=== PATIENT | male | born 1965 | race Caucasian/White ===

== ENCOUNTER 2019-06-28 21:45 | Outpatient (REF) | payer BC, SELFPAY ==
[2019-06-28 22:21] LABS: ALT 39 U/L (16-63); AST 20 U/L (15-37); Albumin 4.3 g/dL (3.4-5.0); Alkaline Phosphatase 79 U/L (46-116); BUN 14 mg/dL (7-18); Bilirubin, Total 0.8 mg/dL (0.2-1.0); CREATININE 0.93 mg/dL (0.70-1.30); Calcium 8.8 mg/dL (8.5-10.1); Calculated LDL 86 mg/dL; Chloride 105 mmol/L (98-107); Cholesterol 138 mg/dL (<200); Glucose 87 mg/dL (74-106); HDL Cholesterol 37 mg/dL (40-60); Sodium 141 mmol/L (136-145); Total Protein 6.9 g/dL (6.4-8.2); Triglyceride 76 mg/dL (<150)
[2019-06-28 22:28] LABS: Abs Immature Grans 0.01 k/cumm (0.0-0.09); Absolute Basophil Count 0.03 k/cumm (0.0-0.2); Absolute Eosinophil Count 0.18 k/cumm (0.0-0.7); Absolute Lymphocyte Count 1.82 k/cumm (1.2-3.4); Absolute Monocyte Count 0.46 k/cumm (0.11-0.7); Absolute Neutrophil Count 2.59 k/cumm (1.2-6.7); Basophils % 0.6; Eosinophils % 3.5; HCT 47.9 % (40.0-50.0); HGB 16.4 g/dL (13.5-17.5); Immature Grans % 0.2; Lymphocytes % 35.8; Mean Corp. HGB Concentration 34.2 g/dL (32.0-36.0); Mean Corpuscular Hemoglobin 31.2 pg (27.0-33.0); Mean Corpuscular Volume 91.2 fL (80-95); Mean Platelet Volume 10.5 fL (8.0-11.0); Neutrophils % 50.9; Platelet Count 241 x1000/uL (130-400); RBC 5.25 m/cumm (4.50-6.00); White Blood Cell Count 5.09 k/cumm (4.4-10.8)
== END 2019-06-28 22:05 ==
LOC: NCHCN 21:45
PROVIDERS: Visit Provider Family Medicine
DX: Z00.00 Encounter for general adult medical examination without abnormal findings (principal); Z13.220 Encounter for screening for lipoid disorders; Z13.228 Encounter for screening for other metabolic disorders
CPT/HCPCS: 80053; 80061; 85025

== ENCOUNTER 2020-03-10 13:42 | Outpatient (REF) | payer BC, SELFPAY ==
[2020-03-10 21:22] LABS: ALT 34 U/L (16-63); AST 20 U/L (15-37); Albumin 4.1 g/dL (3.4-5.0); Alkaline Phosphatase 72 U/L (46-116); Anion Gap 6.6 mmol/L (3-11); BUN 18 mg/dL (7-18); Bilirubin, Total 0.9 mg/dL (0.2-1.0); CO2 25.4 mmol/L (21.0-32.0); CREATININE 0.88 mg/dL (0.70-1.30); Calcium 8.6 mg/dL (8.5-10.1); Calculated LDL 90 mg/dL (<100); Chloride 109 mmol/L (98-107); Cholesterol 140 mg/dL (<200); Glucose 89 mg/dL (74-106); HDL Cholesterol 35 mg/dL (40-60); Potassium 4.1 mmol/L (3.5-5.1); Sodium 141 mmol/L (136-145); Total Protein 6.8 g/dL (6.4-8.2); Triglyceride 77 mg/dL (<150)
== END 2020-03-10 14:02 ==
LOC: NCHCN 13:42
PROVIDERS: Visit Provider Family Medicine
DX: Z00.00 Encounter for general adult medical examination without abnormal findings (principal); E78.6 Lipoprotein deficiency; E66.9 Obesity, unspecified
CPT/HCPCS: 80053; 80061

== ENCOUNTER 2020-08-25 13:58 | Outpatient (REF) | payer BC, SELFPAY ==
[2020-08-26 17:47] LABS: PSA, Screening 0.7 ng/mL (0.0-3.5)
== END 2020-08-25 14:18 ==
LOC: NCHCN 13:58
PROVIDERS: Visit Provider Family Medicine
DX: Z00.00 Encounter for general adult medical examination without abnormal findings (principal)
CPT/HCPCS: 84153

== ENCOUNTER 2022-01-31 20:47 | Outpatient (REF) | payer BC, SELFPAY ==
[2022-01-31 21:37] LABS: Anion Gap 8.4 mmol/L (3-11); BUN 17 mg/dL (7-18); CO2 26.6 mmol/L (21.0-32.0); CREATININE 0.9 mg/dL (0.70-1.30); Calcium 8.5 mg/dL (8.5-10.1); Chloride 107 mmol/L (98-107); Glucose 107 mg/dL (74-106); Sodium 142 mmol/L (136-145)
== END 2022-01-31 20:48 | disposition home or self-care (01) ==
LOC: NCHCN 20:47
PROVIDERS: Visit Provider Family Medicine
DX: Z51.81 Encounter for therapeutic drug level monitoring (principal); Z86.16 Personal history of COVID-19
CPT/HCPCS: 80048

== ENCOUNTER 2022-10-25 09:39 | Outpatient (REF) | payer BC, SELFPAY ==
--- OUTSIDE RECORDS SUMMARY | 2022-10-25 09:43 | XMS_ITS | CCD ---
Author Name Unknown Address [address] [place] [phone] Organization Unknown Address [address], [place] [id number] Care Team Providers Care Patch Worker Name Role Phone DMITRI BRITTON Attending Physician [phone] MAURICIO FLOWER (Secondary) Physician [phone] Vital Signs Unknown or Not Available. Allergies Allergy Code Allergy Type Reaction Status PENICILLIN G 7980 Drug allergy UNKNOWN; CHILDHOOD RX N Active Procedures Unknown or Not Available. History of Immunizations Unknown or Not Available. Problems Unknown or Not Available. Results Unknown or Not Available. Active Medications Unknown or Not Available. Medications Administered During Visit Unknown or Not Available. Encounters Encounter Diagnosis Diagnosis Code Start Date Screening for malignant neoplasm of colon [id number] 05/09/2022 Social History Smoking Status Code Start Date End Date Never smoker [id number] Patient Decision Aids Unknown or Not Available. Discharge Instructions You were admitted to [facility] on 05/09/2022 00:41 with a principal diagnosis of Encounter for screening for malignant neoplasm of colon You were discharged from [facility] on 05/09/2022 00:41 Should you have any questions prior to discharge, please contact a member of your healthcare team. If you have left the hospital and have any questions, please contact your primary care physician. Chief Complaint and Reason For Visit Unknown or Not Available. Function Status Unknown or Not Available. Plan of Care Unknown or Not Available. Referral/Transition of Care Unknown or Not Available.
--- OUTSIDE RECORDS SUMMARY | 2022-10-25 09:43 | XMS_ITS | CCD ---
Author Name Unknown Address [address] [place] [phone] Organization Unknown Address [address] [place] [address] [phone] Care Team Providers Care Community Administrator Name Role Phone DMITRI BRITTON Attending Physician [phone] Vital Signs Vital Sign Value Unit Date/Time Recent/Initial ? BP Systolic 117 mmHg 05/09/2022 10:09 Initial VS BP Diastolic 89 mmHg 05/09/2022 10:09 Initia l VS Respiratory Rate 16 bpm 05/09/2022 10:09 In itial VS Heart Rate 45 bpm 05/09/2022 10:09 Initial VS O2 % BldC Oximetry 96 % 05/09/2022 10:09 Initial VS Body Temperature 36.5 degrees 05/09/2022 10:09 In itial VS Allergies Allergy Code Allergy Type Reaction Status PENICILLIN G 7980 Drug allergy UNKNOWN; CHILDHOOD RX N Active Procedures Procedure Code Procedure Type Date Colonoscopy, Flexible, Proxi mal To Splenic Flexure; w/Bx, Single/Multiple 89660 CPT 05/09/2022 History of Immunizations Unknown or Not Available. Problems Unknown or Not Available. Results Unknown or Not Available. Active Medications Unknown or Not Available. Medications Administered During Visit Unknown or Not Available. Encounters Encounter Diagnosis Diagnosis Code Start Date Encounter for screening for malignant neoplasm o f colon Z1211 05/09/2022 Social History Smoking Status Code Start Date End Date Never smoker [id number] Patient Decision Aids Unknown or Not Available. Discharge Instructions You were admitted to [facility] on 05/09/2022 08:43 with a principal diagnosis of Encounter for screening for malignant neoplasm of colon You had the following procedures done:Colonoscopy, Flexible, Proximal To Splenic Flexure; w/Bx, Single/Multiple You were discharged from [facility] on 05/09/2022 10:25 Should you have any questions prior to [...]
--- OUTSIDE RECORDS SUMMARY | 2022-10-25 09:43 | XMS_ITS | CCD ---
Author Name Unknown Address [address] [place] [phone] Organization Unknown Address [address] [place], [place] [phone] Care Team Providers Care Client Relation Specialist Name Role Phone CHARLI GONZALES Attending Physician [phone] Vital Signs Unknown or Not Available. Allergies Allergy Code Allergy Type Reaction Status PENICILLIN G 7980 Drug allergy UNKNOWN; CHILDHOOD RX N Active Procedures Unknown or Not Available. History of Immunizations Unknown or Not Available. Problems Unknown or Not Available. Results C REACTIVE PROTEIN HIGH SENS ITIVITY* - Collect Date/Time: 10/06/2022 10:33 Test Name Code Test Result Test Units Test Ref Rang e CRP-HIGH SENS. 81688-8 1.21 mg/L L=0.00 H=3 .00 CRP-HIGH SENS 31364-5 0.12 mg/dL L=0.00 H=0. 30 COMPREHENSIVE METABOLIC PANE L (CMP) - Collect Date/Time: 10/06/2022 10:33 Test Name Code Test Result Test Units Test Ref Rang e GLUCOSE 2345-7 86 mg/dL L=70 H=116 BUN 3094-0 18 mg/dL L=6 H=25 CREATININE 2160-0 0.94 mg/dL L=0.67 H=1.17 SODIUM SERUM 2951-2 140 mmol/L L=136 H=145 POTASSIUM SERUM 2823-3 4.1 mmol/L L=3.4 H=5 .2 CHLORIDE SERUM 2075-0 106 mmol/L L=96 H=110 CARBON DIOXIDE (CO2) 2028-9 30 mmol/L L=22 H=34 ANION GAP 44976-4 3.9 mmol/L CALCIUM SERUM 08804-8 8.6 mg/dL L=8.2 H=10. 2 BILIRUBIN TOTAL 1975-2 0.8 mg/dL L=0.0 H=1 .3 ALK. PHOS. 6768-6 73 U/L L=46 H=116 SGOT (AST) 1920-8 24 U/L L=15 H=37 SGPT (ALT) 1742-6 37 U/L L=12 H=78 TOTAL PROTEIN 2885-2 6.8 gm/dL L=6.0 H=8.0 ALBUMIN 1751-7 4.0 gm/dL L=3.4 H=5.0 AGE 57 years eGFR (non-Afr.Amer.) 28517-3 83 mL/min eGFR (Afr-Belarusian) 56968-5 100 mL/min FERRITIN - Collect Date/Time : 10/06/2022 10:33 Test Name Code Test Result Test Units Test Ref Rang e FERRITIN 2276-4 75 ng/mL L=8 H=388 HEMOGLOBIN A1C* - Collect Da te/Time: 10/06/2022 10:33 Test Name Code Test Result Test Units Test Ref Rang e Hgb A1c 4548-4 5.2 % L=3.8 H=5.7 MEAN BLOOD GLUCOSE 92727-8 87 mg/dL IRON - Collect Date/Time: 10:33 Test Name Code Test Result Test Units Test Ref Rang e IRON 2498-4 124 ug/dL L=35 H=150 TSH THYROID STIMULATING HORM ONE* - Collect Date/Time: 10/06/2022 10:33 Test Name Code Test Result Test Units Test Ref Rang e TSH 3014-8 2.114 uIU/mL L=0.360 H=3.74 0 CBC W/ DIFFERENTIAL* - Colle ct Date/Time: 10/06/2022 10:33 Test Name Code Test Result Test Units Test Ref Rang e WBC 6690-2 4.93 th/cmm L=5.00 H=10.00 NEUT % 45.2 % L=40.0 H=80.0 LYMPH % 39.8 % L=10.0 H=50.0 MONO % 63830-3 8.5 % L=2.0 H=12.0 EOS % 5.5 % L=0.0 H=8.0 BASO % 1.0 % L=0.0 H=3.0 IG % 2514-8 0.0 % L=0.0 H=1.1 NRBC % 47363-1 0.0 % L=0.0 H=0.0 NEUT abs count 751-8 2.2 th/cmm L=1.6 H=8. 4 LYMPH abs count 731-0 2.0 th/cmm L=1.5 H=4 .0 MONO abs count 742-7 0.4 th/cmm L=0.2 H=1. 0 EOS abs count 711-2 0.3 th/cmm L=0.0 H=0.5 BASO abs count 704-7 0.1 th/cmm L=0.0 H=0. 2 IG abs count 72032-0 0.0 th/cmm L=0.0 H=0.1 NRBC abs count 76356-2 0.0 mil/cmm L=0.0 H=0. 0 RBC 789-8 5.19 mil/cmm L=4.30 H=6.20 HEMOGLOBIN 718-7 16.4 gm/dL L=13.0 H=17.0 HEMATOCRIT 4544-3 47 % L=45 H=52 MCV 787-2 91 fL L=82 H=92 MCH 785-6 31.6 pg L=27.0 H=31.0 MCHC 786-4 34.6 % L=32.0 H=36.0 RDW-SD 788-0 43.2 fL L=39.0 H=49.0 PLATELET COUNT 777-3 212 th/cmm L=150 H=45 0 HISTAMINE PLASMA - Collect D ate/Time: 10/06/2022 10:33 Test Name Code Test Result Test Units Test Ref Rang e Histamine Plasma 0.42 N/A 0-1.0 IGE - Collect Date/Time: 09/2022 10:33 Test Name Code Test Result Test Units Test Ref Rang e IgE 119 N/A <158 IGG* - Collect Date/Time: 10:33 Test Name Code Test Result Test Units Test Ref Rang e IgG 1103 N/A 610-1616 IGM* - Collect Date/Time: 10:33 Test Name Code Test Result Test Units Test Ref Rang e IgM 108 N/A 35-242 Active Medications Unknown or Not Available. Medications Administered During Visit Unknown or Not Available. Encounters Encounter Diagnosis Diagnosis Code Start Date Adult health examination [id number] Social History Smoking Status Code Start Date End Date Never smoker [id number] Patient Decision Aids Unknown or Not Available. Discharge Instructions You were admitted to [facility] on 10/06/2022 10:04 with a principal diagnosis of Encounter for general adult medical examination without abnormal findings You had the following tests done:C REACTIVE PROTEIN HIGH SENSITIVITY*CBC W/ DIFFERENTIAL*COMPREHENSIVE METABOLIC PANEL (CMP)FERRITINHEMOGLOBIN A1C*HISTAMINE PLASMAIGEIGG*IGM*IRONTSH THYROID STIMULATING HORMONE* You were discharged from [facility] on 10/06/2022 10:04 Should you have any questions prior to [...]
[2022-10-25 15:03] LABS: Anion Gap 5.5 mmol/L (3-11); BUN 17 mg/dL (7-18); CO2 28.5 mmol/L (21.0-32.0); CREATININE 0.9 mg/dL (0.70-1.30); Calcium 8.7 mg/dL (8.5-10.1); Calculated LDL 91 mg/dL (<100); Chloride 107 mmol/L (98-107); Cholesterol 154 mg/dL (<200); Estimated GFR 99.62 (mL/min/1.73m2); Glucose 96 mg/dL (74-106); HDL Cholesterol 47 mg/dL (40-60); Sodium 141 mmol/L (136-145); Triglyceride 82 mg/dL (<150)
[2022-10-26 19:43] LABS: PSA, Screening 0.9 ng/mL (<=3.5)
== END 2022-10-25 09:40 | disposition home or self-care (01) ==
LOC: NCHCN 09:39
PROVIDERS: PCP Family Medicine; Visit Provider Family Medicine
DX: Z00.00 Encounter for general adult medical examination without abnormal findings (principal); Z13.220 Encounter for screening for lipoid disorders; Z13.228 Encounter for screening for other metabolic disorders; Z12.5 Encounter for screening for malignant neoplasm of prostate
CPT/HCPCS: 80048; 80061; 84153

== ENCOUNTER 2023-11-27 15:15 | Outpatient (REF) | payer BC, SELFPAY ==
[2023-11-27 15:12] LABS: Anion Gap 10.1 mmol/L (3-11); BUN 21 mg/dL (7-18); CO2 27.9 mmol/L (21.0-32.0); CREATININE 0.9 mg/dL (0.70-1.30); Calcium 9.1 mg/dL (8.5-10.1); Calculated LDL 97 mg/dL (<100); Chloride 107 mmol/L (98-107); Cholesterol 158 mg/dL (<200); Glucose 92 mg/dL (74-106); HDL Cholesterol 49 mg/dL (40-60); Potassium 3.7 mmol/L (3.5-5.1); Sodium 145 mmol/L (136-145); Triglyceride 60 mg/dL (<150)
[2023-11-29 10:51] LABS: IgA 248 mg/dL (85-499); Interpretation (See Note); Tissue Transglutaminase IgA <4.0 CU (<20.0)
== END 2023-11-27 15:16 | disposition home or self-care (01) ==
LOC: NCHCN 15:15
PROVIDERS: PCP Family Medicine; Visit Provider Family Medicine
DX: R10.13 Epigastric pain (principal); K21.9 Gastro-esophageal reflux disease without esophagitis; Z00.00 Encounter for general adult medical examination without abnormal findings
CPT/HCPCS: 80048; 80061; 82784; 83516

== ENCOUNTER 2024-11-01 17:13 | Outpatient (REF) | payer BC, SELFPAY | END 2024-11-01 17:14 | disposition home or self-care (01) | LOC: NCHCN 17:13 | PROVIDERS: PCP Family Medicine; Visit Provider Family Medicine | DX: Z12.5 Encounter for screening for malignant neoplasm of prostate (principal) | CPT/HCPCS: 84153 ==